=== PATIENT | male | born 1960 | race Caucasian/White ===

== ENCOUNTER 2025-09-08 16:27 | Emergency (ER) | payer OTHER, SELFPAY ==
[2025-09-08 16:28] VITALS: BP 163/79; PULSE 73; RESP 18; TEMP 36.7; O2SAT 98
--- OUTSIDE RECORDS SUMMARY | 2025-09-08 16:29 | XMS_ITS | Clinical Summary ---
Author Organization [facility] Address [address] [place] [address] Care Team Providers Care Microbiology Instructor Name Role Phone Katie Dannielle SALAS Primary Care Provider + Allergies Active Allergy Reactions Criticality Noted Date Comments Cefuroxime Unknown 04/20/2015 Hydrocodone-Acetaminophen Unknown 02/21/2018 Terfenadine Unknown 04/20/2015 Medications aspirin EC (ASPIRIN EC) 81 MG tablet Active fluticasone propionate 50 MCG/ACT nasal sprayIndications: Acute sinusitis, recurrence not specified, unspecified location 1 spray by Nasal route 2 (two) times daily. 16 g 09/25/2019 Active loratadine 5 MG Tab tablet Take 2 split tab (10 mg total) by mouth daily. Active losartan-hydroCHL OROthiazide (HYZAAR) 50-12.5 MG tabletIndications :Essential hypertension Take 1 tablet by mouth daily. 90 tablet 3 08/09/2025 Active Active Problems Problem Noted Date Diagnosed Date Arachnoid cyst 08/11/2025 Assessment & Plan (08/11/2025 3:32 PM CDT): Encounter for wellness examination in adult 05/10 Assessment & Plan (08/11/2025 3:32 PM CDT): Assessment & Plan (05/26/2024 8:12 AM CDT): Checking the following labs: CBC, CMP, Lipid Panel, TSH, and PSA Medication refills have been sent to desired pharmacy Colonoscopy up-to-date Immunizations are up-to-date Referrals: ENT Dysfunction of both eustachian tubes 05/26/2024 Assessment & Plan (08/11/2025 3:32 PM CDT): Assessment & Plan (05/26/2024 8:22 AM CDT): Suspect eustachian tube dysfunction as cause of sx. Recommend switching to a different antihistamine. Continue Flonase but can also consider switching nasal sprays as well. Refer to ENT for further eval. If long wait to see ENT, or if symptoms become more persistent/worse, will consider further eval to rule out differential dx. Patient agreeable with plan and will follow-up with me if needed. Leukocytosis 04/28/2018 Increased platelet count 04/28/2018 Snoring 03/16/2018 Essential hypertension 03/16/2018 Assessment & Plan (08/11/2025 3:32 PM CDT): Orders: losartan-hydroCHLOROthiazide (HYZAAR) 50-12.5 MG tablet; Take 1 tablet by mouth daily. Assessment & Plan (05/26/2024 8:12 AM CDT): BP under good control. Continue meds as prescribed. Continue to work on diet and exercise Cervical radiculopathy 04/20/2015 Resolved Problems Problem Noted Date Diagnosed Date Resolved Date Calcium increased serum 04/28/2018 07/0 12/2020 Screening for prostate cancer 04/16/2018 07/21/2020 Blood tests for routine gene ral physical examination 04/16/2018 07/21/2020 Screening for heart disease 04/16/2018 07/21/2020 Cutaneous skin tags 03/16/2018 05/17/20 22 Encounters Date Type Department Care Team Description 08/11/2025 Results Follow-Up [address] [address] Dannielle Wilson APNP TSH W/REFLEX, PROSTATE SPECIFIC ANTIGEN,SCREENING, LIPID PANEL, Additional followed-up results: 2 08/09/2025 10:10 AM CDT Office Visit [facility] [address] [address] Dannielle Wilson APNP Physical (Patient present for annual. Patient has no concerns. Referral for a tag mole. ) 08/09/2025 Travel 06/27/2025 Telephone [facility] [address] [address] Dannielle Wilson APNP Referral from Last 3 Months Immunizations Immunization Administration Dates Next Due Flucelvax 6 Months+ (Prefill ed Syringe) 09/10/2020 Fluzone (IIV3, Trivalent, 0. 5 ML Prefilled Syringe) 08/09/2025 Influenza Adult (Generic) 09/10/2020 PFIZER COVID-19 (ORIGINAL FORMULATION, PURPLE CAP) mRNA, LNP-S, PF, 30 MCG/0.3 ML DOSE 10/11/2021,03/06/2021,02/09/2021,2020 PFIZER COVID-19 BIVALENT (12 +) mRNA, LNP-S, PF, 30 MCG/0.3 ML DOSE 10/30/2022 Tdap (Adacel) 05/22/2023 Family History Medical History Relation Comments Diabetes Father Heart Disease Father Hypertension Father Relation Status Comments Father Social History Tobacco Use Types Packs/Day Years Used Date Smoking Tobacco: Former Cigarettes Q uit: 01/08/2018 Passive Smoke Exposure: Never Smokeless Tobacco: Never Tobacco Cessation:Counseling Given: Not Answered Alcohol Use Standard Drinks/Week Comments Yes 7 (1 standard drink = 0.6 oz pur e alcohol) PHQ-2 Answer Date Recorded Patient Health Questionnaire-2 Score 0 08/09/2025 Sex and Gender Information Value Date Recorded Sex Assigned at Not on file 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 Gender Identity Not on file Sexual Orientation Not on file Last Filed Vital Signs Vital Sign Reading Time Taken Comments Blood Pressure 136/76 08/09/2025 10:11 AM CDT Pulse 54 08/09/2025 10:11 AM CDT Temperature 36.8 C (98.3 F) 08/09/2025 10:11 AM CDT Respiratory Rate 20 08/07/2023 11:4 3 AM CDT Oxygen Saturation 98% 08/09/2025 10: 11 AM CDT Inhaled Oxygen Concentration - - Weight 109.9 kg (242 lb 4.8 oz) 025 10:11 AM CDT Height 182.9 cm (6') 08/09/2025 10:11 AM CDT Body Mass Index 32.86 08/09/2025 10:11 AM CDT Plan of Treatment Upcoming Encounters Date Type Department Care Team (Late st Contact Info) Description 08/10/2026 9:10 AM CDT Office Visit [facility] Family Medicine - [place] [address] [place] [address] Dannielle Wilson APNP [address] [place] [address] Health Maintenance Due Date Last Done Comments Pneumococcal Vaccine: 50+ Years (1 of 1 - PCV) 09/09/2025 Postponed from 2012 (Future Appointment) Annual Physical 08/09/2026 08/09/2025, 05/10, 05/22/2023, Additional history exists COVID-19 Vaccine ( season) 2026 10/29/2023, 10/30/2022, 10/11/2021, Additional history exists Postponed from 07/11/2025 (Future Appointment) Zoster Vaccines (1 of 2) 08/11/2026 Pos tponed from 2012 (Going to Outside Clinic) Colorectal Cancer Screening Colonoscopy (10 Years) 09/09/2032 09/09/2022, 09/09/2022 DTaP, Tdap and Td Vaccines (2 - Td or Tdap) 05/22/2033 05/22/2023 RSV Immunization or 60+ Years (1 - 1-dose 75+ series) 2037 Hepatitis C 05/22/2053 Postponed from 1980 (Patient Refused) Influenza Adult Completed 08/09/2025, 10/11, 09/10/2020, Additional history exists PHQ-2 (Physician [place]) Completed 08/09/2025 Hepatitis A Vaccines Aged Out No long er eligible based on patient's age to complete this topic Meningococcal B Vaccine Aged Out No l onger eligible based on patient's age to complete this topic Meningococcal Vaccine Aged Out No abhay andres eligible based on patient's age to complete this topic RSV Immunizations Under 20 Months Aged Out No longer eligible based on patient's age to complete this topic Procedures Procedure Name Priority Date/Time Associated Diagnosis Comments COLLECTION VENOUS BLOOD VENIPUNCTURE Routine 08/09/2025 10:33 AM CDT Blood tests for routine general physical examination Screening for prostate cancer CBC W/DIFF AUTOMATED Routine 08/09/2025 10:33 AM CDT Blood tests for routine general physical examination COMPREHENSIVE METABOLIC PANEL Routine 08/09/2025 10:33 AM CDT Blood tests for routine general physical examination LIPID PANEL Routine 08/09/2025 10:33 AM CDT Blood tests for routine general physical examination PROSTATE SPECIFIC ANTIGEN,SCREENING Routine 08/09/2025 10:33 AM CDT Screening for prostate cancer TSH W/REFLEX Routine 08/09/2025 10:33 AM CDT Blood tests for routine general physical examination COLONOSCOPY GENERIC (SCAN ORDER) 09/09/2022 from Last 3 Months or Most Recently Relevant to Health Maintenance Results * TSH W/REFLEX (08/09/2025 10:33 AM CDT) TSH 0.943 0.358 - 3.740 uIU/ML 08/09/2025 4:42 PM CDT -[facility] 08/09/2025 10:3 3 AM CDT us Dannielle SALAS LABORATORY Final Re sult [facility] [address] [place] [address], * PROSTATE SPECIFIC ANTIGEN,SCREENING (08/09/2025 10:33 AM CDT) PSA 2.56 <4.00 NG/ML 08/09/2025 4:11 PM CDT [facility] Comment: ASSAY PERFORMED BY [employer] USING [employer]. PATIENT RESULTS DETERMINED BY ASSAYS FROM DIFFERENT MANUFACTURERS AND/OR BY DIFFERENT METHODS MAY NOT BE COMPARABLE. 08/09/2025 10:3 3 AM CDT Dannielle SALAS LABORATORY Final Re sult [facility] [address] [place] [address], * (ABNORMAL) COMPREHENSIVE METABOLIC PANEL (08/09/2025 10:33 AM CDT) Pathologist [facility] SODIUM S/P/B 140 136 - 145 MMOL/L 08/09/2025 4:42 PM CDT [facility] POTASSIUM S/P/B 4.7 3.5 - 5.1 MMOL/L 08/09/2025 4:42 PM CDT [facility] CHLORIDE S/P/B 104 98 - 107 MMOL/L 08/09/2025 4:42 PM CDT [facility] CO2 27.1 21 - 32 MMOL/L 08/09/2025 4:42 PM CDT [facility] GLUCOSE 96 70 - 99 MG/DL 08/09/2025 4:42 PM CDT [facility] BUN 19(H) 7 - 18 MG/DL 08/09/2025 4:42 PM T [facility] CREATININE S/P/B 1.13 0.70 - 1.30 MG/DL 08/09/2025 4:42 PM CDT [facility] CALCIUM S/P/B 9.0 8.4 - 10.5 MG/DL 08/09/2025 4:42 PM CDT [facility] BILIRUBIN TOTAL S/P/B 0.5 0.2 - 1.0 MG/DL 08/09/2025 4:42 PM [facility] ALKALINE PHOSPHATASE S/P/B 73 45 - 115 U/L 08/09/2025 4:42 PM [facility] AST 21 15 - 37 U/L 08/09/2025 4:42 PM T [facility] ALT 33 16 - 63 U/L 08/09/2025 4:42 PM [facility] TOTAL PROTEIN S/P/B 6.9 6.4 - 8.2 G/DL 08/09/2025 4:42 PM [facility] ALBUMIN S/P/B 4.0 3.4 - 5.0 G/DL 08/09/2025 4:42 PM [facility] ANION GAP 8.9 5 - 15 MMOL/L 08/09/2025 4:42 PM [facility] Comment:REFERENCE RANGE NOT ESTABLISHED OSMOLALITY (CALC) 292 MOSM/KG 025 4:42 PM [facility] Comment:REFERENCE RANGE NOT ESTABLISHED GFR ESTIMATE 73(L) >90 ML/MIN/1. 73 M2 08/09/2025 4:42 PM [facility] GFR NOTES GFR REFERENCE S: 08/09/2025 4:42 PM [facility] Comment: THE ESTIMATED GFR IS CALCULATED USING THE 2020 CKD-EPI EQUATION. THE FOLLOWING CATEGORIES FOR GRADING RENAL FUNCTION ARE RECOMMENDED BY THE INTERNATIONAL SOCIETY OF NEPHROLOGY (KDIGO 2012 CLINICAL PRACTICE GUIDELINE). G1,NORMAL OR HIGH: >89 ml/min/1.73 m2 G2,MILDLY DECREASED: 60-89 ml/min/1.73 m2 G3A,MILDLY TO MODERATELY DECREASED: 45-59 ml/min/1.73 m2 G3B,MODERATELY TO SEVERELY DECREASED: 30-44 ml/min/1.73 m2 G4,SEVERELY DECREASED: 15-29 ml/min/1.73 m2 G5,KIDNEY FAILURE: <15 ml/min/1.73 m2 08/09/2025 10:3 3 AM CDT Dannielle SALAS [facility]ORATORY Final [facility] [address] [place] [address], [place] [phone] * (ABNORMAL) LIPID PANEL (08/09/2025 10:33 AM CDT) CHOLESTEROL 167 <200 MG/DL 08/09/2025 4:42 PM CDT [facility] TRIGLYCERIDES 97 <150 MG/DL 08/09/2025 4:42 PM CDT [facility] HDL 44 >40 MG/DL 08/09/2025 4:42 PM CDT [facility] LDL-C 104(H) <100 MG/DL 08/09/2025 4:42 PM CDT [facility] VLDL CALCULATION 19 5 - 28 MG/DL 08/09/2025 4:42 PM CDT [facility] CHOL/HDL RATIO 3.8 0.0 - 4.0 08/09/2025 4:42 PM CDT [facility] LDL/HDL 2.4(H) 0.41 - 2.13 08/09/2025 4:42 PM CDT [facility] NON HDL CHOLESTEROL 123 <140 MG/DL 08/09/2025 4:42 PM CDT [facility] 08/09/2025 10:3 3 AM CDT Dannielle SALAS LABORATORY Final Re sult Performing Organization Address City/[facility]/ZIP Co de Phone Number [facility] [address] [place] [address], [place] [phone] * (ABNORMAL) CBC W/DIFF AUTOMATED (08/09/2025 10:33 AM CDT) [facility] WBC 10.01 4.00 - 10.80 x10'3/uL 08/09/2025 2:42 PM CDT [facility] RBC 4.97 4.50 - 6.10 x10'6/uL 08/09/2025 2:[address] [facility] HGB 14.8 13.0 - 18.0 G/DL 08/09/2025 2:[address] [facility] HCT 44.0 37.0 - 52.0 % 08/09/2025 2:42 PM CDT [facility] MCV 88.5 78.0 - 100.0 FL 08/09/2025 2:42 PM CDT [facility] MCH 29.8 27.0 - 31.0 PG 08/09/2025 2:[address] [facility] MCHC 33.6 33.0 - 36.0 G/DL 08/09/2025 2:42 PM CDT [facility] RDW 13.6 11.5 - 14.5 % 08/09/2025 2:42 PM CDT [facility] PLT 485(H) 150 - 350 x10'3/uL 08/09/2025 2:42 PM CDT [facility] MPV 10.5(H) 7.4 - 10.4 FL 08/09/2025 2:42 PM CDT [facility] DIFFERENTIAL TYPE AUTOMATED DIFFERENTIAL 08/09/2025 2:42 PM CDT [facility] NEUTROPHILS % 67.0 % 08/09/2025 2:42 PM CDT [facility] LYMPHOCYTES % 22.8 % 08/09/2025 2:42 PM CDT [facility] MONOCYTES % 7.5 % 08/09/2025 2:[address] [facility] EOSINOPHILS % 1.6 % 08/09/2025 2:42 PM CDT [facility] BASOPHILS % 0.9 % 08/09/2025 2:42 PM CDT [facility] IMMATURE GRANS % 0.2 % 08/09/2025 2:42 PM CDT [facility] ABS. NEUTROPHILS 6.71 1.60 - 8.30 x10'3/uL 08/09/2025 2:42 PM CDT [facility] ABS. LYMPHOCYTES 2.28 0.80 - 4.70 x10'3/uL 08/09/2025 2:42 PM CDT [facility] ABS. MONOCYTES 0.75 0.00 - 1.50 x10'3/uL 08/09/2025 2:42 PM CDT [facility] ABS. EOSINOPHILS 0.16 0.00 - 0.40 x10'3/uL 08/09/2025 2:42 PM CDT [facility] ABS. BASOPHILS 0.09 0.00 - 0.20 x10'3/uL 08/09/2025 2:42 PM CDT [facility] ABS. IMMATURE GRANULOCYTES 0.02 0.00 - 0.03 x10'3/uL 08/09/2025 2:42 PM CDT [facility] 08/09/2025 10:3 3 AM CDT Dannielle BAJWANP LABORATORY Final Re sult [facility] [address] [place] [address], [place] [phone] * COLONOSCOPY GENERIC (09/09/2022) 09/09/2022 us [facility] Scanned SCANNING Final Resu lt from Last 3 Months or Most Recently Relevant to Health Maintenance Insurance [employer] [facility] Care Teams Microbiology Instructor Relationship Specialty Start Date End Date Dannielle Wilson APNP PCP - General NURSE PRACTITIONER 10/20/18
--- OUTSIDE RECORDS SUMMARY | 2025-09-08 16:30 | XMS_ITS | Data Portability ---
Author Organization [facility], [address] Neurology ([place]) Address [address] [place] [address] Care Team Providers Care Advertising Material Distributor Name Role Phone IVAN WILSON Primary Care Provider Assessment Encounter Date Assessment Date Assessment LastModified by Organization Details LastModified Time 11/30/2024 11/30/2024 Kwaku estrada was seen for walkover audio tympanograms upon the request of Kady Owusu NP. RESULTS: Otoscopy is unremarkable. Pure-tone air and bone conduction testing using insert earphones reveals hearing to be within normal range in the right ear and hearing within normal range from 250 through 2000 Hz then sloping from a mild to moderate mixed hearing loss in the remaining tested frequencies in the left ear. Speech optimization manager thresholds were obtained at 10 dB HL in the right ear and 15 dB HL in the left ear Speech discrimination was tested in quiet at 50 dB HL in the right ear and 55 dB HL in the left ear resulting in a score of 96% in each ear. Tympanograms were type Ad, hypermobile in both ears. RECOMMENDATIONS: 1. Follow-up with Kady Owusu NP regarding today's test results and any other concerns. 2. Hearing test as needed or if any changes are noted. [email or web address] Not available 11/30/2024 10:03:10 12/27/2024 12/27/2024 Kwaku estrada is a 64 year old male with history of left ear muffled sound and dizziness which started a workup to rule out acoustic neuroma. His mother had an acoustic neuroma that triggered his workup. His workup included hearing test and MRI brain including FIESTA sequences. this ruled out acoustic neuroma. However, it incidentally showed a small posterior fossa arachnoid cyst without significant mass effect. It also showed a partially empty sella. I questioned him about headaches or vision loss, which he denies. I reassured him that these findings are benign and incidental and at this time do not require any further workup. I instructed him to report any progressive headaches or vision changes and asked him to follow up with his PCP for his left ear condition. I will see him on a prn basis. [email or web address] Not available 12/27/2024 16:04:12 Plan of Treatment Reminders Order Date Submit Date Provider Last Modified By Organization Details Last Modified Time Details Appointments New Patient Visit 30.NEW 2024 08:00A M Carlita Marielos Not available Not available Not available Lab None recorded. Referral None recorded. Procedures None recorded. Surgeries None recorded. Imaging MRI, internal auditory canal, w/wo contrast 2024 025 [facility], [address] [place] [address], [id number], 12/15/2024 17:16:55 Medication Orders None recorded. Patient TargetsNo targets recorded. Patient InstructionsNo instructions recorded. Reason for Referral None Reported. Results Created Date Observation Date Name Description Value Unit Range Abnormal Flag Note LastModifiedBy Organization Detail LastModifiedTime 12/15/19 25 12/15/2024 MRI, inter nal audit ory canal , w/wo contr ast [facility] [address] [place] [address] Teleph [facility] [phone] Name: Charanjit Ortega 7258 Exam Date: 2024 Age: 64 Physic alejandrina: Owusu , FRUIT CANNER, Kady : 1959 Examin ation: MRI IAC AGNES EXAMIN ATION: MRI brain and chemist internship al audito ry canals with and withou t contra st INDICA TION: left sided hearin g loss ongoin g multip le years, increa sed 6 months , also interm ittent episod es of vertig o, rule out acoust ic neurom a per doctor `s notes, no known injury . No histor y of prior surger y. TECHNI QUE: MRI evalua tion of the brain perfor med using T1, T2, FLAIR, diffus ion, postco ntrast T1 and GRE/SW I imagin g. Additi onal T2, precon trast T1 and postco ntrast T1 imagin g obtain ed throug h the chemist internship al audito ry canals . 15 ml Dotare m admini stered via the right antecu bital fossa withou t advers e reacti on. COMPAR MARANDA: There are no compar maranda studie s availa ble. FINDIN GS: There is no diffus ion restri ction to sugges t acute infarc tion. The ventri cular system is normal in size and config uratio n. No white matter abnorm ality. There is no mass or edema. 1.8 cm, benign midlin e school cook ior fossa arachn oid cyst. No abnorm al enhanc ement. No recent or remote hemorr miguel. Orbits are normal . Small left spheno id retent ion cyst. No parana mohsen sinus or mastoi d fluid. The major intrac ranial arteri al flow voids are mainta ined. Partia lly empty sella. There is no marrow signal abnorm ality. Extrac ranial soft tissue s are normal . Cerebe llopon jennifer angles and chemist internship al audito ry canals are clear. Fluid- filled inner ear struct ures appear normal . There is no abnorm al enhanc ement along the crania l nerve VII/cr anial nerve VIII comple xes. IMPRES GINO: 1. No acute intrac ranial findin gs. 2. No cerebe llopon jennifer angle/ chemist internship al audito ry canal abnorm ality. 3. Benign school cook ior fossa arachn oid cyst. Electr onical ly signed in Sadnra cribe by: GONZALEZ HERRERA MD on:12/15 4:14 PM cc: Page PAGE 1 of NUMPA ES 1 KATHERINE [facility] [address] [place], [address], 12/16/2024 13:54:31 Result Notes Documentation Provider Name and Address Organization Details Recorded Time Mri, Internal Auditory Canal, W/wo Contrast : [facility] [address] [place] [address] ) [phone] Name: Kwaku Patterson Exam Date: 12/15/2024 Age: 64 Physician: MAHNAZ Owusu Beth : 1960 Examination: MRI IAC AGNES EXAMINATION: MRI brain and internal auditory canals with and without contrast INDICATION: left sided hearing loss ongoing multiple years, increased 6 months, also intermittent episodes of vertigo, rule out acoustic neuroma per doctor`s notes, no known injury. No history of prior surgery. TECHNIQUE: MRI evaluation of the brain performed using T1, T2, FLAIR, diffusion, postcontrast T1 and GRE/SWI imaging. Additional T2, precontrast T1 and postcontrast T1 imaging obtained through the internal auditory canals. 15 ml Dotarem administered via the right antecubital fossa without adverse reaction. COMPARISON: There are no comparison studies available. FINDINGS: There is no diffusion restriction to suggest acute infarction. The ventricular system is normal in size and configuration. No white matter abnormality. There is no mass or edema. 1.8 cm, benign midline posterior fossa arachnoid cyst. No abnormal enhancement. No recent or remote hemorrhage. Orbits are normal. Small left sphenoid retention cyst. No paranasal sinus or mastoid fluid. The major intracranial arterial flow voids are maintained. Partially empty sella. There is no marrow signal abnormality. Extracranial soft tissues are normal. Cerebellopontine angles and internal auditory canals are clear. Fluid-filled inner ear structures appear normal. There is no abnormal enhancement along the cranial nerve VII/cranial nerve VIII complexes. IMPRESSION: 1. No acute intracranial findings. 2. No cerebellopontine angle/internal auditory canal abnormality. 3. Benign posterior fossa arachnoid cyst. Electronically signed in PowerScribe by: GONZALEZ HERRERA MD on:12/15/2024 4:14 PM cc: Page PAGE 1 of NUMPAGES 1 Not Available [facility] 12/16/2024 13:54:31 Problems Name Problem SNOMED Code Status Onset Date Resolution Date Notes Provider Name and Address Organization Details Recorded Time Asymmetrica l sensorineur al hearing loss 306507881 Active 2024 Kady Owusu APRN, SEAN. PROOF TECHNICIAN HELPER [address], [place], [address] [place] [address] 01/21/202 5 10:48:41 Vertigo 441260109 Active 2024 Kady Owusu APRN, DNP. PROOF TECHNICIAN HELPER [address] [place] [address], [phone], [facility] 5 10:10:46 Dysfunction of left eustachian tube 2080457492912 106 Active 2024 Kady Owusu APRN, DNP. PROOF TECHNICIAN HELPER [address] [place] [address], [phone], [facility] 5 10:46:09 Posterior fossa arachnoid cyst 146400210 Active 2024 Emily Wilkreson [facility] 5 15:43:38 Problem Notes None recorded. Procedures Surgical History Date Name Laterality Status Provider Name and Address Organization Details Recorded Time Colonoscopy with biopsy completed Not Available Health Note 12/26/2024 22:48:18 Imaging Results None recorded. Procedure Notes None recorded. Medical Equipment None Reported. Allergies Allergen ID Allergen Name Allergen Category Reaction Reaction Severity Criticality Documentation Date Start Date Code Code System Note Provider Name and Address Organization Details Recorded Time 4578600 Ceftin medicatio n Not available Not available Not available 12/10/20232021 89298 6 RxNorm Not Available Counts include 234 beds at the [facility] 4 04:03:55 4236454 Seldane medicatio n anaphylax is Not available Not available 11/30/2024 64487 0 RxNorm Kady Jarvis [facility] 5 09:08:04 7441991 hydrocodo ne Not available anaphylax is Not available Not available 11/30/2024 5489 RxNorm Kady Jarvis [facility] 5 09:08:46 Medications Name Sig Start Date Stop Date Status Note LastModified by Organization Details LastModified Time Flonase 50 mcg/actuati on nasal spray,suspe nsion Palisade 1 spray every day by intranasa l route. active Not Available Not Available No t Available aspirin 81 mg chewable tablet Chew 1 tablet every day by oral route. active Not Available Not Available No t Available losartan 50 mg-hydrochl orothiazide 12.5 mg tablet Take 1 tablet every day by oral route. active Not Available Not Available No t Available loratadine 10 mg tablet Take 1 tablet every day by oral route. active Not Available Not Available No t Available Paxlovid 300 mg (150 mg x 2)-100 mg tablets in a dose pack TAKE 2 NIRMATREL VIR 150MG AND 1 RITONAVIR 100MG TWICE DAILY ,X5 DAY(S) 11/30 completed Not Available Not Available Not Available Vitals Date Recorded Body height Body mass index (BMI) Body weight Provider Name and Address Organization Details Last Updated DateTime 11/30/2024 182.88 cm 33 kg/m2 099248.95 g Kady Blantonon [facility] 11/30/2024 09:06:43 Date Recorded Body height Body mass index (BMI) Body weight Heart rate Oxygen saturation Oxygen saturation in Arterial blood by Pulse oximetry Systolic And Diastolic Provider Name and Address Organization Details Last Updated DateTime 182.88 cm 32.7 kg/m2 733103. 2 g 69 /min 98 % 98 % 142/82 mm[Hg] Janell Smithmandeep [facility] 15:04:51 Social History Question Answer Notes LastModified by [employer] Details LastModified Time Tobacco Smoking Status Former Smoker Not Available Health Note 12/26/2024 22:48:19 Do You Have An Advance Directive? No [email or web address] Information not available 12/26/2024 What Is Your Level Of Caffeine Consumption? Moderate [email or web address] Information not available 12/26/2024 How Many Times Per Week Do You Exercise? 1-2 Times Per Week [email or web address] Information not available 12/26/2024 When Did You Quit Smoking? 2018 [email or web address] Information not available 12/26/2024 What Was The Date Of Your Most Recent Tobacco Screening? 12/27/2024 [email or web address] Information not available 12/26/2024 What Is Your Relationship Status? Single [email or web address] Information not available 12/26/2024 Sex: Unknown Functional Status Question Answer Note LastModified by [employer] Details LastModified Time How many times per week do you consume alcohol? 1-2 times per week [email or web address] Information not available 12/26/2024 Do you use any illicit or recreational drugs? No [email or web address] Information not available 12/26/2024 What is your level of alcohol consumption? Occasional [email or web address] Information not available 12/26/2024 Are you currently employed? 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 Occasional [email or web address] Information not available 12/26/2024 Mental Status None recorded. Family History Relationship Description Onset Age of this Age Resolved Age Notes LastModified by Organization Details LastModified Time Father Diabetes mellitus [email or web address] Not available 2024 22:48:18 Father Heart disease [email or web address] Not available 2024 22:48:18 Father Hypertensive disorder [email or web address] Not available 2024 22:48:18 Mother Hypertensive disorder [email or web address] Not available 2024 22:48:18 Mother Disorder of thyroid gland [facility]-[email or web address] Not available 2024 22:48:18 Medical History Condition Response Anxiety Disorder N Diabetes N Bleeding Disorder N Attention-deficit Hyperactivity Disorder N High Blood Pressure N Arthritis N Hyperlipidemia N Cancer N Thyroid Problems N Stroke N Asthma N Depression N COPD N Seizures N Anemia N Heart Disease N Fibromyalgia N Osteoporosis N Kidney Disease N Past Encounters Encounter ID Performer Location Encounter Start Date Encounter Closed Date Diagnosis/Indication Diagnosis SNOMED-CT Code Diagnosis ICD10 Code Diagnosis IMO Codes Diagnosis Note [id number] Kady Owusu, ENVIRONMENTAL COMPLIANCE OFFICER, DNP. [facility] 4[facility] ENT ([place]) [address] [facility],[address] [place] [address] 11/30/2024 08:56:45 11/30/2024 10:34:18 Vertigo 872883768 R42 24605 Patient has a history of vertiginou s symptoms. Symptoms occur following a pressure change in the left ear. He states symptoms will last several minutes to an hour. The pressure will start to resolve and he will hear some crackling sounds in his left ear. He states that he might be nauseous for a little while following that but everything returns to normal. I suspect that he has some component of eustachian tube dysfunctio n and he is hypersensi tive to the pressure changes. His symptoms do not meet the typical descriptio n of BPPV, M ni re's disease, or labyrinthi tis. I recommende d that he continue his fluticason e nasal spray. He has not had any symptoms for 4 months. He is currently using fluticason e 1 time daily. I recommende d increasing to twice daily if he starts having problems. He will call my office if he is symptomati c and we will try to get a hearing test during the time that he is symptomati c. Asymmetric al sensorineural hearing loss 096643062 H90.3 541719 Reviewed audiogram with patient in detail. Speech optimization manager threshold 10 dB on the right 50 dB on the left. Speech discrimina tion score 96% at 50 dB on the right 96% at 55 dB on the left. He has normal hearing in all frequencie s from 250 Hz to 8000 Hz in the right ear. In the left ear he has normal hearing from 250 Hz through 500 Hz. Has a mild hearing loss at 1000 Hz through 3000 Hz. He has a moderate hearing loss from 6000 Hz to 8000 Hz. Given his mother's history of acoustic neuroma I have chosen to order an MRI of his IACs for further evaluation and treatment. This may also give us some other underlying cause for his intermitte nt vertiginou s symptoms. Patient verbalized understand ing and states that he has no further concerns or questions at this time. Once the MRI results are returned I will determine appropriat e follow-up time for him. Dysfunctio n of left eustachian tube 3812695977 186333 H69.92 28245498 [id number] [facility] [address] ,[address] [place] [phone] 11/30/2024 09:36:32 11/30/2024 10:19:16 Asymmetrical sensorineural hearing loss 691119790 H90.3 006717 [id number] Jada Palumbo MD [facility] Neurosurg [place] ([place]) [address] [place] [phone] 12/27/2024 14:54:18 01/04/2025 14:38:10 Posterior fossa arachnoid cyst 853158164 G93.0 [id number] Health Concerns Section Related Observation LastModified by Organization Detai ls LastModified Time None Recorded Concern Status LastModified by Organization Details LastModified Time None Recorded Advance Directives Directive N: Payers Insurance Date Sequence Insurance Name Policy Number Policy Alcaraz Covered Member ID Alcaraz Member ID Guarantor Name 11/30/2024 1 [facility] [id number] Kwaku Patterson [id number] OI Kwaku Patterson 01/05/2025 1 [facility] [employer] [id number] Kwaku Patterson [id number] OI Kwaku Patterson Notes Date Note Type Note Provider Name and Address Organization Details Recorded Time 11/30/2024 text/html ROS as noted in the HPI 64 year old male seen in ENT for ETD. Symptoms started over a year ago. His mother had an acoustic neuroma. If he moves wrong his ear will get congested and he gets dizzy. He will have to sit down. He hears some crackling and then he starts to feel better. His last episode was several years ago. Each episode last 15 or 20 minutes. He describes a light headed sensation without vertigo. It occurs randomly without a pattern. He uses Flonase and Claritin daily. He uses saline nasal spray frequently throughout the day. After a shower, his left ear feels more full. He has not noticed any change in his hearing. During episodes, he may hear a faint ringing sound. Kady Owusu, ENVIRONMENTAL COMPLIANCE OFFICER, DNP. [place] [id number] [address], [address], [facility] 12/01/2024 15:09:15 12/27/2024 text/html Mr. Patterson is a 64 year old male who is a patient of Jose Wilson NP, is referred by Marizol Owusu for arachnoid cyst. The patient denies headaches. He states that the only vision issues he has is wearing glasses and his left eye gets tired. The patient reports one dizzy spell where he became unbalanced. He thinks he has Meniere's disease. The patient denies confusion or word finding difficulty. The patient states that his mother has history of acoustic neuroma. An MRI IAC with and without contrast was performed at [facility] on 12/15/24. The impression is as follows:IMPRESSION:1. No acute intracranial findings.2. No cerebellopontine angle/internal auditory canal abnormality.3. Benign posterior fossa arachnoid cyst. 12/27/24-Pt here by self today. Pt denies headaches. States only vision issues he has is wearing glasses and left eye getting tired. Pt states he had one dizzy spell where he got unbalanced. He thinks he has Meniere's disease. Pt denies confusion and trouble finding his words. No CardiologistBlood thinners: Aspirin 81mgFlonase and Claritin 11/30/24- Hearing test with Nikki Moya ([place])Otoscopy is unremarkable.Pure-tone air and bone conduction testing using insert earphones reveals hearing to be within normal range in the right ear and hearing within normal range from 250 through 2000 Hz then sloping from a mild to moderate mixed hearing loss in the remaining tested frequencies in the left ear.Speech optimization manager thresholds were obtained at 10 dB HL in the right ear and 15 dB HL in the left earSpeech discrimination was tested in quiet at 50 dB HL in the right ear and 55 dB HL in the left ear resulting in a score of 96% in each ear.Tympanograms were type Ad, hypermobile in both ears. 12/15/24- MRI Brain and internal auditory canals with and without contrast at [place] reveals no acute intracranial findings, No cerebellopontine angle/internal auditory canal abnormality, benign posterior fossa arachnoid cyst. Jada Palumbo MD [address] [facility], [place], [address], [place] [facility] 12/30/2024 15:00:31
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
== END 2025-09-08 19:32 | disposition home or self-care (01) ==
LOC: ANHED 19:10
PROVIDERS: Emergency Provider Emergency Medicine
DX: S00.11XA Contusion of right eyelid and periocular area, initial encounter (principal); W55.12XA Struck by horse, initial encounter
CPT/HCPCS: 99282